=== PATIENT | female | born 1960 | race Hispanic/Latino ===

== ENCOUNTER 2017-04-13 21:15 | Emergency (ER) | payer OTHER ==
[2017-04-13] MEDS ORDERED: Ibuprofen 600 MG TAB ONE (22:36)
== END 2017-04-13 22:40 | disposition home or self-care (01) ==
LOC: SCSER 21:15
DX: J10.1 Influenza due to other identified influenza virus with other respiratory manifestations (principal); F17.210 Nicotine dependence, cigarettes, uncomplicated; Z85.41 Personal history of malignant neoplasm of cervix uteri
CPT/HCPCS: 87804; 99283

== ENCOUNTER 2017-06-22 09:58 | Emergency (ER) | payer OTHER ==
[2017-06-22] MEDS ORDERED: Ketorolac Tromethamine 30 MG/ML VIAL ONE (10:20)
--- NOTE | 2017-06-22 11:06 | RAD ---
LEFT RIBS AND PA CHEST: Date: 06/22/17 HISTORY: Pain. COMPARISON: None. FINDINGS: No displaced left-sided rib fractures. Lungs are clear. No pneumothorax or effusion. Cardiac silhouet te and mediastinal contours within normal limits. IMPRESSION: No acute intrathoracic abnormality. POS: [id number]
== END 2017-06-22 11:08 | disposition home or self-care (01) ==
LOC: SCSER 09:58
DX: S29.011A Strain of muscle and tendon of front wall of thorax, initial encounter (principal); F17.210 Nicotine dependence, cigarettes, uncomplicated; X50.1XXA Overexertion from prolonged static or awkward postures, initial encounter
CPT/HCPCS: 93005; 96372; J1885

== ENCOUNTER 2018-04-23 08:09 | Emergency (ER) | payer OTHER ==
[2018-04-23] MEDS ORDERED: Ondansetron PF 4 MG/2 ML Vial ONE (08:55)
[2018-04-23 09:02] LABS: #Basophils 0.1 thou/uL (0.0-0.2); #Eosinphils 0.2 thou/uL (0.0-0.7); #Lymphocytes 1.6 thou/uL (1.20-3.40); #Monocytes 0.5 thou/uL (0.11-0.59); #Neutrophils 5.2 thou/uL (1.40-6.50); %Basophils 1.3 % (0.0-1.0); %Eosinophils 2.2 % (0.0-10.0); %Lymphocytes 21.1 % (21.0-51.0); %Monocytes 6.5 % (0.0-10.0); %Neutrophils 68.9 % (42.0-75.0); Hemoglobin 15.2 g/dL (12.0-16.0); Mean Corpuscular HGB CONC 31.3 g/dL (32.0-36.0); Mean Corpuscular Hemoglobin 27.8 pg (27.0-31.0); Mean Corpuscular Volume 88.7 fL (78.0-98.0); Mean Platelet Volume 9.1 fL (7.4-10.4); Platelet Count 253 thou/uL (130-400); RBC Distribution Width 14.3 % (11.5-14.5); Red Blood Cell (RBC) Count 5.48 mill/uL (4.20-5.40); White Blood Cell (WBC) Count 7.5 thou/uL (4.8-10.8)
[2018-04-23 09:09] LABS: ALT (SGPT) 17 U/L (8-55); AST (SGOT) 16 U/L (5-34); Albumin 4.5 g/dL (3.5-5.0); Alkaline Phosphatase 106 U/L (40-150); Anion Gap 13 mmol/L (10-20); BUN (Urea Nitrogen) 12 mg/dL (9.8-20.1); Bilirubin, Total 0.2 mg/dL (0.2-1.2); Calc. Creatinine Clearance 0 mL/min (70-130); Calcium 9.6 mg/dL (7.8-10.44); Carbon Dioxide 21 mmol/L (22-29); Chloride 111 mmol/L (98-107); Estimated GFR-MDRD 68; Glucose 127 mg/dL (70-105); Lipase 34 U/L (8-78); Potassium 4.5 mmol/L (3.5-5.1); Protein, Total 7.5 g/dL (6.0-8.3); Sodium 140 mmol/L (136-145)
[2018-04-23 09:10] LABS: BHCG - Serum Negative (NEGATIVE); Pregs Control Background? CLEAR/WHITE (CLR/WHITE); Pregs Control Bar Appear? YES (CONTROL BAR)
== END 2018-04-23 12:14 | disposition home or self-care (01) ==
LOC: SCSER 08:09
DX: K52.9 Noninfective gastroenteritis and colitis, unspecified (principal); Z71.6 Tobacco abuse counseling; F17.210 Nicotine dependence, cigarettes, uncomplicated; Z79.899 Other long term (current) drug therapy
CPT/HCPCS: 80053; 82274; 83605; 83630; 83690; 84703; 85025; 87045; 87046; 87328; 87329; 87449; 87899; 96361; 96374; 99406; J2405

== ENCOUNTER 2018-08-05 13:17 | Emergency (ER) | payer OTHER | END 2018-08-05 13:55 | disposition home or self-care (01) | LOC: SCSER 13:17 | DX: T63.461A Toxic effect of venom of wasps, accidental (unintentional), initial encounter (principal); F17.210 Nicotine dependence, cigarettes, uncomplicated | CPT/HCPCS: 99282 ==